=== PATIENT | female | born 1970 | race Caucasian/White ===

== ENCOUNTER → 2017-05-07 | Outpatient (CLI) | payer SELFPAY ==
[~2017-05-07] MED LIST: 'TENORMIN50 MG PO; ANAPROX DS550 MG PO; ATENOLOL50 MG PO; CARVEDILOL3.125 MG PO; CIPROFLOXACIN500 MG PO; CLINDAMYCIN HC300 MG PO; CLINDAMYCIN150 MG PO; CYCLOBENZAPRINE5 M3 PO; FLEXERIL5 MG PO; LISINOPRIL20 MG PO; LISINOPRIL40 MG PO; MEDROL DOSEPAK4 MG PO; MOTRIN800 MG PO; NORCO 325 MG-51 TAB PO; PEN-V500 MG PO; PERIDEX 480 ML480 ML PO; PREDNISONE20 MG PO; PRILOSEC20 M1 PO; PRINIVIL40 MG PO; PYRIDIUM200 MG PO; VICODIN 5/500 505 MG PO; VICODIN ES 7501 TAB PO
== END | disposition home or self-care (01) ==
LOC: RESCLI 00:53
DX: Z12.31 Encounter for screening mammogram for malignant neoplasm of breast (principal); I10 Essential (primary) hypertension; E66.09 Other obesity due to excess calories; F41.1 Generalized anxiety disorder; Z68.30 Body mass index [BMI] 30.0-30.9, adult; Z72.0 Tobacco use; Z71.6 Tobacco abuse counseling